=== PATIENT | female | born 1935 | race Caucasian/White ===

== ENCOUNTER 2016-12-15 15:16 | Emergency (ER) | payer MEDICARE, BC ==
--- NOTE | 2016-12-15 16:27 | UC ---
Respiratory Complaint HPI - HPI Summary HPI Summary: 81 yo F with cough since 12/10/16 and also no appetite since the cough. Cough is better. No sputum. Very tired. Talking to someone she falls asleep. Drinking gingerale and eating bananas. Denies abdominal pain, no N, V. Pt states no diarrhea. States she had yellow watery stool on 12/12 and 12/13/16. Had scrambled eggs at a restaurant and "it went right through me today". State s the diarrhea this am was yellow, brown. States she just got back from a cruise to [facility]. States she got back to [facility] from the cruise last night, got back to [place] today. States she started the cruise on 12/07/16 and started with her symptoms on 12/10/16. Did not see the ship doctor. Was on [employer] cru[employer]. Did see the ship nurse who advised robitussin for the cough. "Didn't have a thermometer, doesn't think she had a fever". States her daughter shared a room with pt on the cruise and daughter is not sick. Pt drove herself here. Pt's PCP is Dr. Franks. Has an appt with him first week of December. Took Robitussin for the cough, no meds for the diarrhea. Has not had fishoil etc since 12/14/16. - History of Current Complaint Chief Complaint: UCRespiratory Stated Complaint: COUGH/NO APPETITE Time Seen by Provider: 12/15/16 16:26 Hx Obtained From: Patient Onset/Duration: Gradual Onset, Lasting Days, Still Present Timing: Constant Severity Initially: Moderate Severity Currently: Moderate Pain Intensity: 5 Pain Scale Used: 0-10 Numeric Character: Cough: Nonproductive Aggravating Factors: Nothing Alleviating Factors: Nothing Associated Signs And Symptoms: Negative: Fever, Chills, Pleuritic Chest Pain, Dizziness - fatigue, diarrhea, Calf Pain, Calf Swelling, URI, Nasal Congestion, Hoarseness - Risk Factors Pulmonary Embolism Risk Factors: Recent Travel Cardiac Risk Factors: Negative Pseudomonas Risk Factors: Negative Tuberculosis Risk Factors: Negative - Allergies/Home Medications Allergies/Adverse Reactions: Allergies Allergy/AdvReac Type Severity Reaction Status Date / Time No Known Allergies Allergy Verified 12/15/16 15:49 PMH/Surg Hx/FS Hx/Imm Hx Previously Healthy: Yes - Surgical History Surgical History: Yes Surgery Procedure, Year, and Place: uterine lift - Family History Known Family History: Positive: Respiratory Disease - daughter - Social History Lives: Alone Alcohol Use: Rare Substance Use Type: None Smoking Status (MU): Former Smoker Type: Cigarettes Have You Smoked in the Last Year: No - Immunization History Hx Tetanus, Diphtheria Vaccination: Yes Vaccination Up to Date: Yes Review of Systems Constitutional: Fatigue ENT: Sore Throat Respiratory: Cough Cardiovascular: Negative Gastrointestinal: Diarrhea Genitourinary: Negative Motor: Negative Neurovascular: Negative Musculoskeletal: Negative Neurological: Weakness - generalized, "tired" Psychological: Negative All Other Systems Reviewed And Are Negative: Yes Physical Exam Triage Information Reviewed: Yes Appearance: Well-Nourished, Ill-Appearing, Pain Distress Vital Signs: Initial Vital Signs Temp 97.8 F 12/15/16 15:43 Pulse 81 12/15/16 15:43 Resp 16 12/15/16 15:43 BP 128/58 12/15/16 15:43 Pulse Ox 96 12/15/16 15:43 Vital Signs Reviewed: Yes Eyes: Positive: Conjunctiva Clear ENT: Positive: Hearing grossly normal, Pharyngeal erythema, TMs normal. Negative: Muffled/hoarse voice Neck: Positive: Supple, Nontender, No Lymphadenopathy Respiratory: Positive: No respiratory distress, No accessory muscle use, Decreased breath sounds, Rhonchi - scattered, Other: - congested cough Cardiovascular: Positive: RRR, No Murmur, Pulses Normal, Brisk Capillary Refill Abdomen Description: Positive: Nontender, No Organomegaly, Soft. Negative: CVA Tenderness (R), CVA Tenderness (L), Distended, Guarding, Hepatomegaly, McBurney' s Point Tenderness, Peritoneal Signs, Pulsatile Mass, Splenomegaly Bowel Sounds: Positive: Present Musculoskeletal: Positive: Strength Intact, ROM Intact Neurological: Positive: Alert, Muscle Tone Normal Psychological Exam: Normal Skin Exam: Normal UC Diagnostic Evaluation - Laboratory O2 Sat by Pulse Oximetry: 96 Respiratory Course/Dx - Course Course Of Treatment: influenza B positive. pt unable to provide stool samples here. CXR COPD. discussed with pt and daughter (who is an RN), will treat with tamiflu because of patient's age and COPD to help pt not get pneumonia. - Differential Dx/Diagnosis Differential Diagnosis/HQI/PQRI: Bronchitis, Influenza, Lower Resp Infection, Other - traveler's diarrhea, infectious colitis, diverticulitis Provider Diagnoses: Influenza B. Acute diarrhea. COPD Discharge - Discharge Plan Condition: Stable Disposition: HOME Prescriptions: Oseltamivir CAP* [Tamiflu CAP*] 75 mg PO BID #10 cap Patient Education Materials: Influenza (ED), Acute Diarrhea (ED) Referrals: Deric Franks MD [Primary Care Provider] - 1 Day Additional Instructions: Please submit the stool samples. Take the tamiflu as directed. Go to the emergency room if any new or worsening symptoms. See your doctor within 1-2 days definite.
--- NOTE | 2016-12-15 17:02 | RAD ---
HISTORY: Cough, recent travel COMPARISONS: December 06, 2007 VIEWS: 2: Frontal dual-energy and lateral views of the chest. FINDINGS: CARDIOMEDIASTINAL SILHOUETTE: The cardiomediastinal silhouette is normal. YANDY: The yandy are normal. PLEURA: The costophrenic angles are sharp. No pleural abnormalities are noted. LUNG PARENCHYMA: There is hyperinflation with flattening of the diaphragm and expansion of the AP diameter of the chest. ABDOMEN: The upper abdomen is clear. There is no subphrenic gas. BONES AND SOFT TISSUES: No bone or soft tissue abnormalities are noted. OTHER: None. IMPRESSION: HYPERINFLATION, CONSISTENT WITH COPD. NO ACTIVE CARDIOPULMONARY DISEASE.
[2016-12-15 18:10] VITALS: BP 137/55
[2016-12-15 19:56] LABS: Hematocrit 40 % (35-47); Hemoglobin 12.9 g/dl (12.0-16.0); Mean Corpuscular HGB Conc 32 g/dl (31-36); Mean Corpuscular Hemoglobin 30 pg (27-31); Mean Corpuscular Volume 91 fL (80-97); Mean Platelet Volume 10 um3 (7.4-10.4); Red Blood Count 4.37 10^6/ul (4.0-5.4); Red Cell Distribution Width 15 % (10.5-15); White Blood Count 4.9 10^3/ul (3.5-10.8)
[2016-12-15 20:09] LABS: Albumin 4.2 g/dL (3.2-5.2); BUN/Creatinine Ratio 17.5 (8-20); Calcium 8.9 mg/dL (8.6-10.3); EGFR African American 71.2 (>60); EGFR Non-African American 55.4 (>60); Globulin 3.1 g/dL (2-4); Potassium 3.7 mmol/L (3.5-5.0); Total Bilirubin 0.5 mg/dL (0.2-1.0); Total Protein 7.3 g/dL (6.4-8.9)
== END 2016-12-15 18:12 | disposition home or self-care (01) ==
LOC: UCCORT 15:16
DX: J11.1 Influenza due to unidentified influenza virus with other respiratory manifestations (principal); R19.7 Diarrhea, unspecified; J44.9 Chronic obstructive pulmonary disease, unspecified; Z87.891 Personal history of nicotine dependence
CPT/HCPCS: 36415; 71020; 80053; 83630; 85025; 87177; 87209; 87328; 87329; 87502; 99212; G0463

== ENCOUNTER 2017-06-16 21:38 | Emergency (ER) | payer MEDICARE, BC ==
[2017-06-16 21:48] VITALS: BP 147/53
--- NOTE | 2017-06-16 22:01 | UC ---
Lower Extremity/Ankle HPI - HPI Summary HPI Summary: Left foot and ankle pain, swelling and bruising onset 1630 s/p twisting foot in a hole in the lawn - History of Current Complaint Chief Complaint: UCLowerExtremity Stated Complaint: LEFT ANKLE/FOOT PAIN FALL Time Seen by Provider: 06/16/17 21:43 Hx Obtained From: Patient ?: No Onset/Duration: Sudden Onset, Lasting Hours Severity Initially: Severe Severity Currently: Severe Aggravating Factor(s): Standing, Ambulation Alleviating Factor(s): Nothing Able to Bear Weight: Yes - but painful - Allergies/Home Medications Allergies/Adverse Reactions: Allergies Allergy/AdvReac Type Severity Reaction Status Date / Time No Known Allergies Allergy Verified 06/16/17 21:57 Home Medications: Home Medications Aspirin [Aspirin Adult Low Dose 81 MG] 162 mg PO ONCE PRN 06/16/17 [History Confirmed 06/16/17] PMH/Surg Hx/FS Hx/Imm Hx Previously Healthy: Yes - Surgical History Surgical History: Yes Surgery Procedure, Year, and Place: uterine lift - Family History Known Family History: Positive: Unknown, Cardiac Disease, Respiratory Disease - daughter - Social History Alcohol Use: Rare Substance Use Type: None Smoking Status (MU): Former Smoker Type: Cigarettes Have You Smoked in the Last Year: No - Immunization History Hx Tetanus, Diphtheria Vaccination: Yes Vaccination Up to Date: Yes Review of Systems Constitutional: Negative Skin: Negative Eyes: Negative ENT: Negative Respiratory: Negative Cardiovascular: Palpitations Gastrointestinal: Negative Genitourinary: Negative Motor: Negative Neurovascular: Decreased Sensation Musculoskeletal: Arthralgia, Decreased ROM, Edema, Myalgia Neurological: Negative Psychological: Negative Is Patient Immunocompromised?: No All Other Systems Reviewed And Are Negative: Yes Physical Exam Triage Information Reviewed: Yes Appearance: Well-Appearing, Well-Nourished, Pain Distress Vital Signs: Initial Vital Signs Temp 97.9 F 06/16/17 21:41 Pulse 81 06/16/17 21:41 BP 147/53 06/16/17 21:41 Vital Signs Reviewed: Yes Eye Exam: Normal ENT Exam: Normal Dental Exam: Normal Neck exam: Normal Respiratory Exam: Normal Cardiovascular Exam: Normal Abdominal Exam: Normal Bowel Sounds: Positive: Present Musculoskeletal: Positive: Strength Limited @ - can bear weigth but painful, ROM Limited @ - in eversion and inversion, Edema @ - over the dorsum of the foot Neurological Exam: Normal Psychological Exam: Normal Skin Exam: Normal Lower Extremity Course/Dx - Course Course Of Treatment: hx obtained, exam performed ,meds reviewed xray obtained, - Differential Dx/Diagnosis Differential Diagnosis/HQI/PQRI: Dislocation, Fracture (Closed), Sprain, Strain Provider Diagnoses: foot sprain. lateral ankle sprain left ankle Discharge - Discharge Plan Condition: Stable Disposition: HOME Patient Education Materials: Foot Sprain (ED) Referrals: Deric Franks MD [Primary Care Provider] - Angus Severino MD [Medical Doctor] - Additional Instructions: 1. Rest, ice Compress and elevate the leg 2. Use the gel splint for stability, 3. Rest and elevate as much as possible, use your post op shoe 4. if your pain is not improving follow up with Dr Severino the orthopedist
--- NOTE | 2017-06-16 22:06 | RAD ---
INDICATION: Left foot injury. TECHNIQUE: 3 views of the left foot were obtained. FINDINGS: There is soft tissue swelling present over the dorsal aspect of the midfoot. The bones are in normal alignment. No acute fracture is seen. There is smooth cortical thickening present along the proximal diaphysis of the fourth metatarsal. Joint spaces appear maintained. IMPRESSION: SOFT TISSUE SWELLING, NO FRACTURE IS SEEN.
== END 2017-06-16 22:19 | disposition home or self-care (01) ==
LOC: UCCORT 21:38
DX: S93.602A Unspecified sprain of left foot, initial encounter (principal); S93.402A Sprain of unspecified ligament of left ankle, initial encounter; X50.1XXA Overexertion from prolonged static or awkward postures, initial encounter; Y93.89 Activity, other specified; Y92.096 Garden or yard of other non-institutional residence as the place of occurrence of the external cause; Z79.82 Long term (current) use of aspirin; Z87.891 Personal history of nicotine dependence
CPT/HCPCS: 99211; G0463

== ENCOUNTER 2018-01-28 12:04 | Emergency (ER) | payer MEDICARE, BC ==
[2018-01-28 12:25] VITALS: BP 135/47
--- NOTE | 2018-01-28 12:44 | UC ---
Lower Extremity/Ankle HPI - HPI Summary HPI Summary: 82 yo [place] female with left ankle pain and stiffness while walking, had injured it last year and now hurts when she walks every morning, denies numbness and tingling - History of Current Complaint Chief Complaint: UCLowerExtremity Stated Complaint: ANKLE (L) COMPLAINT Time Seen by Provider: 01/28/18 12:31 Hx Obtained From: Patient ?: No Onset/Duration: Sudden Onset Severity Initially: Moderate Severity Currently: Moderate Pain Intensity: 8 - Allergies/Home Medications Allergies/Adverse Reactions: Allergies Allergy/AdvReac Type Severity Reaction Status Date / Time No Known Allergies Allergy Verified 06/16/17 21:57 Home Medications: Home Medications Acetaminophen 325 mg PO DAILY 01/28/18 [History Confirmed 01/28/18] PMH/Surg Hx/FS Hx/Imm Hx - Surgical History Surgical History: Yes Surgery Procedure, Year, and Place: uterine lift - Family History Known Family History: Positive: Unknown, Cardiac Disease, Respiratory Disease - daughter - Social History Alcohol Use: Rare Substance Use Type: None Smoking Status (MU): Former Smoker Type: Cigarettes Have You Smoked in the Last Year: No When Did the Patient Quit Smoking/Using Tobacco: 20 YEARS AGO - Immunization History Hx Tetanus, Diphtheria Vaccination: Yes Vaccination Up to Date: Yes Review of Systems All Other Systems Reviewed And Are Negative: Yes Physical Exam Triage Information Reviewed: Yes Appearance: Well-Appearing Vital Signs: Initial Vital Signs Temp 36.6 C 01/28/18 12:18 Pulse 79 01/28/18 12:18 Resp 16 01/28/18 12:18 BP 135/47 01/28/18 12:18 Pulse Ox 98 01/28/18 12:18 Eye Exam: Normal ENT Exam: Normal Dental Exam: Normal Neck exam: Normal Neck: Positive: 1 Respiratory Exam: Normal Cardiovascular Exam: Normal Abdominal Exam: Normal Musculoskeletal: Positive: Strength Intact, ROM Intact, No Edema, Other: - mild TTP on anterior ankle on talotibial region,, NVI Neurological Exam: Normal Psychological Exam: Normal Skin Exam: Normal Lower Extremity Course/Dx - Course Course Of Treatment: 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 Advised to got see podiatry if pain persists - Differential Dx/Diagnosis Differential Diagnosis/HQI/PQRI: Arthritis Provider Diagnoses: left ankle pain Discharge - Sign-Out/Discharge Documenting (check all that apply): Discharge/Admit/Transfer - Discharge Plan Condition: Stable Disposition: HOME Referrals: Deric Franks MD [Primary Care Provider] - Additional Instructions: PLEASE FOLLOW UP WITH PODIATRY IF PAIN PERSISTS - Billing Disposition and Condition Condition: STABLE Disposition: HOME
== END 2018-01-28 13:02 | disposition home or self-care (01) ==
LOC: UCCORT 12:04
DX: M25.572 Pain in left ankle and joints of left foot (principal); Z87.891 Personal history of nicotine dependence
CPT/HCPCS: 99212; G0463

== ENCOUNTER 2018-10-29 10:36 | Emergency (ER) | payer MEDICARE, BC ==
[2018-10-29 10:54] VITALS: BP 143/74
--- NOTE | 2018-10-29 11:10 | UC ---
Lower Extremity/Ankle HPI - HPI Summary HPI Summary: Pt presents with c/o left hip and lateral thigh pain. Pain begins at left hip and radiates lateral down thigh and then anteriorally to left knee. - History of Current Complaint Chief Complaint: UCLowerExtremity Stated Complaint: LEFT LEG PAIN 1 WEEK Time Seen by Provider: 10/29/18 11:01 Hx Obtained From: Patient ?: No Onset/Duration: Gradual Onset, Lasting Days, Still Present Severity Initially: Mild Severity Currently: Moderate - worsens with movement Pain Intensity: 6 Aggravating Factor(s): Ambulation Alleviating Factor(s): Rest Able to Bear Weight: Yes - painful - Risk Factors Gout Risk Factors: Age Over 40 DVT Risk Factors: Negative Septic Arthritis Risk Factor: Negative - Allergies/Home Medications Allergies/Adverse Reactions: Allergies Allergy/AdvReac Type Severity Reaction Status Date / Time No Known Allergies Allergy Verified 10/29/18 10:51 Home Medications: Home Medications Buffalo-3 Fatty Acids (Nf) [Fish Oil (NF)] 1,000 mg PO DAILY 10/29/18 [History Confirmed 10/29/18] PMH/Surg Hx/FS Hx/Imm Hx Previously Healthy: Yes - Surgical History Surgical History: Yes Surgery Procedure, Year, and Place: uterine lift - Family History Known Family History: Positive: Unknown, Cardiac Disease, Respiratory Disease - daughter - Social History Occupation: Retired Lives: Alone Alcohol Use: Rare Substance Use Type: None Smoking Status (MU): Former Smoker Type: Cigarettes Length of Time of Smoking/Using Tobacco: 1 PPD x 50 Years Have You Smoked in the Last Year: No When Did the Patient Quit Smoking/Using Tobacco: ~1997 - Immunization History Hx Tetanus, Diphtheria Vaccination: Yes Vaccination Up to Date: Yes Review of Systems All Other Systems Reviewed And Are Negative: Yes Constitutional: Positive: Negative Skin: Positive: Negative Eyes: Positive: Negative ENT: Positive: Negative Respiratory: Positive: Negative Cardiovascular: Positive: Negative Gastrointestinal: Positive: Negative Genitourinary: Positive: Negative Motor: Positive: Decreased ROM - left hip painful with ROM Neurovascular: Positive: Negative Musculoskeletal: Positive: Arthralgia, Decreased ROM, Myalgia Neurological: Positive: Negative Psychological: Positive: Negative Is Patient Immunocompromised?: No Physical Exam Triage Information Reviewed: Yes Appearance: Pain Distress - with examination and movement Vital Signs: Initial Vital Signs Temp 97.5 F 10/29/18 10:49 Pulse 90 10/29/18 10:49 Resp 16 10/29/18 10:49 BP 143/74 10/29/18 10:49 Pulse Ox 97 10/29/18 10:49 Vital Signs Reviewed: Yes Eye Exam: Normal ENT Exam: Normal Dental Exam: Normal Neck exam: Normal Respiratory: Positive: No respiratory distress Musculoskeletal: Positive: ROM Limited @ - left hip and upper thigh painful lateral and at IT band and TFL Neurological Exam: Normal Psychological Exam: Normal Skin Exam: Normal Lower Extremity Course/Dx - Differential Dx/Diagnosis Differential Diagnosis/HQI/PQRI: Bursitis, Tendonitis Provider Diagnosis: Iliotibial band syndrome affecting left lower leg, Tensor fascia paige syndrome Discharge - Sign-Out/Discharge Documenting (check all that apply): Patient Departure All imaging exams completed and their final reports reviewed: No Studies - Discharge Plan Condition: Stable Disposition: HOME Prescriptions: Ibuprofen TAB* [Motrin TAB* 600 MG] 600 mg PO Q8H PRN #30 tab PRN Reason: Pain predniSONE TAB* [Deltasone 20 MG TAB*] 20 mg PO DAILY #4 tab Patient Education Materials: Ice Pack Application (ED), Iliotibial Band Syndrome (ED) Referrals: Deric Franks MD [Primary Care Provider] - If Needed - Billing Disposition and Condition Condition: STABLE Disposition: Home
== END 2018-10-29 11:23 | disposition home or self-care (01) ==
LOC: UCCORT 10:36
DX: M76.32 Iliotibial band syndrome, left leg (principal); Z87.891 Personal history of nicotine dependence
CPT/HCPCS: 99212; G0463

== ENCOUNTER 2019-04-22 18:32 | Emergency (ER) | payer MEDICARE, BC ==
[2019-04-22 19:18] VITALS: BP 108/64
--- NOTE | 2019-04-22 20:28 | UC ---
Respiratory Complaint HPI - HPI Summary HPI Summary: 83 year old otherwise healthy female presents with 24 hour history of productive cough. She denies fever, chills nor shortness of breath. No chest pains nor pain with inspiration. - History of Current Complaint Chief Complaint: UCGeneralIllness Stated Complaint: COUGH,CONGESTION Time Seen by Provider: 04/22/19 20:13 Hx Obtained From: Patient, Family/Ui Ux Developer - daughter Onset/Duration: Sudden Onset Pain Intensity: 5 Associated Signs And Symptoms: Negative: Dyspnea, Fever, Chills, Pleuritic Chest Pain, Wheezing, Hemoptysis, Dizziness, Calf Swelling, Edema, Nasal Congestion - Risk Factors Pulmonary Embolism Risk Factors: Negative Cardiac Risk Factors: Negative Pseudomonas Risk Factors: Negative Tuberculosis Risk Factors: Negative - Allergies/Home Medications Allergies/Adverse Reactions: Allergies Allergy/AdvReac Type Severity Reaction Status Date / Time No Known Allergies Allergy Verified 04/22/19 19:10 Home Medications: Home Medications Acetaminophen [Tylenol Extra Strength] 500 mg PO ONCE PRN 04/22/19 [History Confirmed 04/22/19] PMH/Surg Hx/FS Hx/Imm Hx Previously Healthy: Yes - Surgical History Surgical History: Yes Surgery Procedure, Year, and Place: uterine lift - Family History Known Family History: Positive: Unknown, Cardiac Disease, Respiratory Disease - daughter - Social History Alcohol Use: Rare Substance Use Type: None Smoking Status (MU): Former Smoker Type: Cigarettes Length of Time of Smoking/Using Tobacco: 1 PPD x 50 Years Have You Smoked in the Last Year: No When Did the Patient Quit Smoking/Using Tobacco: ~1997 - Immunization History Hx Tetanus, Diphtheria Vaccination: Yes Vaccination Up to Date: Yes Review of Systems All Other Systems Reviewed And Are Negative: Yes Constitutional: Negative: Fever, Chills, Fatigue Skin: Negative: Rash Eyes: Negative: Drainage ENT: Negative: Sore Throat, Ear Ache, Nasal Discharge, Sinus Congestion Respiratory: Positive: Cough. Negative: Shortness Of Breath Cardiovascular: Negative: Palpitations, Chest Pain Gastrointestinal: Negative: Abdominal Pain, Vomiting, Diarrhea, Nausea Genitourinary: Negative: Dysuria Motor: Negative: Weakness Musculoskeletal: Negative: Edema, Myalgia Neurological: Negative: Headache, Weakness, Paresthesia, Numbness Is Patient Immunocompromised?: No Physical Exam Triage Information Reviewed: Yes Appearance: Well-Appearing, No Pain Distress, Well-Nourished Vital Signs: Initial Vital Signs Temp 98.4 F 04/22/19 19:12 Pulse 99 04/22/19 19:12 Resp 20 04/22/19 19:12 BP 108/64 04/22/19 19:12 Pulse Ox 96 04/22/19 19:12 Vital Signs Reviewed: Yes ENT: Positive: Normal ENT inspection, Pharynx normal, Other - left TM blocked with cerumen, right TM normal Neck: Positive: Supple, Nontender, No Lymphadenopathy Respiratory: Positive: Lungs clear, Normal breath sounds, No respiratory distress. Negative: Crackles, Rhonchi, Wheezing Cardiovascular: Positive: RRR, No Murmur Abdomen Description: Positive: Nontender, Soft Neurological: Positive: Alert Skin: Negative: Rashes Respiratory Course/Dx - Differential Dx/Diagnosis Provider Diagnosis: Acute bronchitis Discharge - Sign-Out/Discharge Documenting (check all that apply): Patient Departure All imaging exams completed and their final reports reviewed: No Studies - Discharge Plan Condition: Stable Disposition: HOME Prescriptions: DOXYcycline CAP(*) [DOXYcycline 100MG CAP(*)] 100 mg PO BID #20 cap Patient Education Materials: Acute Bronchitis (ED) Referrals: Deric Franks MD [Primary Care Provider] - Additional Instructions: Take Doxycycline 100mg twice daily until completed. May use Robitussin expectorant as needed. If symptoms persist, worsen or if fever or shortness of breath develop, follow-up with your physician or the emergency department. - Billing Disposition and Condition Condition: STABLE Disposition: Home
[2019-04-22] MEDS ORDERED: DOXYcycline CAP(*) 100 MG PO ONE (20:29)
[2019-04-22] MEDS ORDERED: DOXYcycline CAP(*) 100 MG PO SCH (21:00)
== END 2019-04-22 20:39 | disposition home or self-care (01) ==
LOC: UCCORT 18:32
DX: J98.01 Acute bronchospasm (principal); Z87.891 Personal history of nicotine dependence
CPT/HCPCS: 99212; A9270-GY; G0463

== ENCOUNTER 2019-10-03 08:15 | Emergency (ER) | payer MEDICARE, BC ==
[2019-10-03 08:35] VITALS: BP 129/67
--- NOTE | 2019-10-03 08:37 | UC ---
Eye Complaint HPI - HPI Summary HPI Summary: 83-year-old female who had some redness to her left eye with a bump on the lower eyelid over the past couple days. She only came here because her daughter , who is a nurse, insisted. - History of Current Complaint Chief Complaint: UCEye Stated Complaint: LEFT EYE COMPLAINT Time Seen by Provider: 10/03/19 08:26 Hx Obtained From: Patient ?: No Onset/Duration: Gradual Onset Timing: Constant Severity Initially: Mild Severity Currently: Mild Pain Intensity: 3 Location of Injury: Eye Lid (lower), Other Aggravating Factor(s): Nothing Alleviating Factor(s): Nothing Associated Signs And Symptoms: Positive: Negative - Allergies/Home Medications Allergies/Adverse Reactions: Allergies Allergy/AdvReac Type Severity Reaction Status Date / Time No Known Allergies Allergy Verified 10/03/19 08:35 PMH/Surg Hx/FS Hx/Imm Hx Previously Healthy: Yes - Surgical History Surgical History: Yes Surgery Procedure, Year, and Place: uterine lift - Family History Known Family History: Positive: Unknown, Cardiac Disease, Respiratory Disease - daughter - Social History Alcohol Use: Rare Substance Use Type: None Smoking Status (MU): Former Smoker Type: Cigarettes Length of Time of Smoking/Using Tobacco: 1 PPD x 50 Years Have You Smoked in the Last Year: No When Did the Patient Quit Smoking/Using Tobacco: ~1997 - Immunization History Hx Tetanus, Diphtheria Vaccination: Yes Vaccination Up to Date: Yes Review of Systems All Other Systems Reviewed And Are Negative: Yes Skin: Positive: Other - Red elevated lump left lower eyelid Is Patient Immunocompromised?: No Physical Exam Triage Information Reviewed: Yes Appearance: Well-Appearing, No Pain Distress, Well-Nourished Vital Signs: Initial Vital Signs Temp 97.4 F 10/03/19 08:31 Pulse 81 10/03/19 08:31 Resp 12 10/03/19 08:31 BP 129/67 10/03/19 08:31 Pulse Ox 97 10/03/19 08:31 Vital Signs Reviewed: Yes Eyes: Positive: Other: - Left lower eyelid has what appears to be a stye and a small ulceration in the inner aspect. Sclera is normal, PERRLA, EOMI Psychological Exam: Normal Skin: Positive: Other - See above notes Eye Complaint Course/Dx - Course Course Of Treatment: The patient is comfortable here. I did offer antibiotic eyedrops however she preferred not to have them. She is to follow-up with an band reamer machine operator as needed. She can do warm moist compresses to the area and take Tylenol for pain. - Differential Dx/Diagnosis Provider Diagnosis: Stye Discharge ED - Sign-Out/Discharge Documenting (check all that apply): Patient Departure All imaging exams completed and their final reports reviewed: No Studies - Discharge Plan Condition: Good Disposition: HOME Patient Education Materials: Stephani (ED) Referrals: Deric Franks MD [Primary Care Provider] - Wilder Medina MD [Medical Doctor] - Additional Instructions: Warm moist compresses to the eye for 5 times a day for 20 minutes each time. Continue Tylenol for pain. Follow-up with an band reamer machine operator in 4 or 5 days if no improvement. - Billing Disposition and Condition Condition: GOOD Disposition: Home - Attestation Statements Provider Attestation: This patient was not seen by me. I was available for consult. Chart reviewed. BASSEM
== END 2019-10-03 08:46 | disposition home or self-care (01) ==
LOC: UCCORT 08:15
DX: H00.015 Hordeolum externum left lower eyelid (principal); Z87.891 Personal history of nicotine dependence
CPT/HCPCS: 99211; G0463